=== PATIENT | female | born 1980 | race Hispanic/Latino ===

== ENCOUNTER 2016-07-06 11:52 | Outpatient (CLI) | payer BC ==
[2016-07-06 13:27] LABS: Hematocrit 44.2 % (36.0-47.0); White Blood Cell (WBC) Count 10.5 thou/uL (4.8-10.8)
[2016-07-06 13:51] LABS: Hemoglobin A1c 8.4 % (4.0-6.0)
[2016-07-06 14:06] LABS: ALT (SGPT) 17 U/L (0-55); AST (SGOT) 19 U/L (5-34); Alkaline Phosphatase 116 U/L (40-150); Anion Gap 18 mmol/L (10-20); BUN (Urea Nitrogen) 14 mg/dL (7.0-18.7); Bilirubin, Total 1.3 mg/dL (0.2-1.2); Calc. Creatinine Clearance 0 mL/min (70-130); Calcium 9.1 mg/dL (7.8-10.44); Carbon Dioxide 24 mmol/L (22-29); Chloride 107 mmol/L (98-107); Estimated GFR-MDRD 79; Globulin 3.4 g/dL (2.4-3.5); Protein, Total 7.8 g/dL (6.0-8.3)
== END 2016-07-06 11:53 | disposition home or self-care (01) ==
LOC: NAV SJFMSP 11:52
PROVIDERS: ATTEND Surgery
DX: R53.83 Other fatigue (principal); E11.9 Type 2 diabetes mellitus without complications
CPT/HCPCS: 80053; 82607; 82728; 83036; 84425; 84439; 84443; 85027

== ENCOUNTER 2019-08-10 18:12 | Emergency (ER) | payer BC ==
--- NOTE | 2019-08-10 18:50 | RAD ---
RADIOGRAPH RIGHT FOOT 3VIEWS: DATE: 08/10/2019 HISTORY: 39-year-old female with acute right foot pain FINDINGS: There is no dislocation. No fracture is identified. IMPRESSION: No fracture.
== END 2019-08-10 18:54 | disposition home or self-care (01) ==
LOC: NAV ERS 18:12
DX: S90.31XA Contusion of right foot, initial encounter (principal); E11.9 Type 2 diabetes mellitus without complications; F41.9 Anxiety disorder, unspecified; F17.210 Nicotine dependence, cigarettes, uncomplicated; Z79.4 Long term (current) use of insulin; W22.8XXA Striking against or struck by other objects, initial encounter